=== PATIENT | female | born 2000 | race Two or more races ===

== ENCOUNTER 2025-02-20 23:29 | Emergency (ER) | payer OTHER ==
[~2025-02-20] VITALS: Ht 152.4 cm; Wt 76.2 kg
[2025-02-20] MEDS ORDERED: PRENATE DHA SO1 EAC1 (23:45)
[2025-02-20] MEDS ORDERED: ZOFRAN8 MG (23:46)
[2025-02-21] MEDS ORDERED: ORPHENADRINE CITRATE 30 MG/ML AMPUL IM STA (00:12)
[2025-02-21] MEDS ORDERED: ACETAMINOPHEN 500 MG GEL..CAP PO STA (00:12)
[2025-02-21] MEDS ORDERED: ORPHENADRINE CITRATE 30 MG/ML AMPUL ONE (00:14)
[2025-02-21] MEDS ORDERED: ACETAMINOPHEN 500 MG GEL..CAP PO ONE (00:14)
[2025-02-21 00:57] VITALS: BP 124/86; O2SAT 98
== END 2025-02-21 00:58 ==
LOC: ER 23:29
DX: O26.892 Other specified pregnancy related conditions, second trimester (principal); Z3A.18 18 weeks gestation of pregnancy; M62.838 Other muscle spasm; M54.2 Cervicalgia; R51.9 Headache, unspecified